=== PATIENT | female | born 1965 | race Asian ===

== ENCOUNTER 2018-05-16 21:30 | Emergency (ER) | payer OTHER ==
[~2018-05-16] VITALS: Ht 157.5 cm; Wt 45.4 kg
--- NOTE | 2018-05-16 21:47 | NUR ---
Dr. Schroeder at bedside for MSE.
[2018-05-16] MEDS ORDERED: ACETAMINOPHEN ES 500 MG TABLET PO ONE (22:00)
[2018-05-16] MEDS ORDERED: VANCOMYCIN IV 1,000 MG in IV DEXTROSE 5% 250 ML IV ONE (22:00)
[2018-05-16] MEDS ORDERED: SULFAMETH/TRIMETH 800/160 MG TABLET PO ONE (22:00)
[2018-05-16] MEDS ORDERED: diphenhydrAMINE 50 MG/1 ML VIAL IV ONE (22:00)
[2018-05-16] MEDS ORDERED: diphenhydrAMINE 50 MG/1 ML VIAL ONE ×2 (22:11→22:16)
[2018-05-16] MEDS ORDERED: ACETAMINOPHEN ES 500 MG TABLET ONE (22:11)
[2018-05-16] MEDS ORDERED: SULFAMETH/TRIMETH 800/160 MG TABLET ONE (22:12)
[2018-05-16] MEDS ORDERED: VANCOMYCIN IV 0 ML ONE (22:12)
[2018-05-16] MEDS ORDERED: VANCOMYCIN IV 200 ML ONE (22:16)
[2018-05-16 22:23] LABS: BASOPHILS # (AUTO) 0.1 K/uL (0.0-8.0); BASOPHILS % (AUTO) 0.8 % (0.0-2.0); EOSINOPHILS # (AUTO) 0.2 K/uL (0.0-0.7); HEMATOCRIT 43.8 % (31.2-41.9); HEMOGLOBIN 14.9 g/dL (10.9-14.3); LYMPHOCYTES # (AUTO) 1.4 K/uL (20.0-40.0); LYMPHOCYTES % (AUTO) 21.2 % (20.5-51.5); MEAN CORPUSCULAR HEMOGLOBIN 31.8 uug (24.7-32.8); MEAN CORPUSCULAR HGB CONC 34 g/dL (32.3-35.6); MEAN CORPUSCULAR VOLUME 93.8 fL (75.5-95.3); MONOCYTES # (AUTO) 0.5 K/uL (2.0-10.0); NEUTROPHILS # (AUTO) 4.4 K/uL (1.8-8.9); PLATELET COUNT (AUTO) 254 K/uL (179-408); RED BLOOD CELL COUNT(AUTO) 4.67 MIL/uL (3.63-4.92); WHITE BLOOD COUNT (AUTO) 6.4 K/uL (3.8-11.8)
[2018-05-16 22:33] LABS: CREATININE 0.6 mg/dL (0.6-1.3)
[2018-05-16 22:39] LABS: BILIRUBIN,DIRECT 0.1 mg/dL (0.0-0.2); BILIRUBIN,TOTAL 0.3 mg/dL (0.2-1.0); TOTAL PROTEIN, SERUM 7.7 g/dL (6.4-8.2)
--- NOTE | 2018-05-16 23:58 | NUR ---
Patient discharged to home in stable conditon. Written and verbal after care instructions given. Patient verbalizes understanding of instructions. Patient ambulated out of ER with steady gait, no acute signs of distress, VSS, all belongings taken, IV site discontinued.
[2018-05-17] VITALS: BP 108/74
== END 2018-05-17 | disposition home or self-care (01) ==
LOC: ER 21:32
DX: S80.862A Insect bite (nonvenomous), left lower leg, initial encounter (principal); L03.116 Cellulitis of left lower limb; Z90.710 Acquired absence of both cervix and uterus; W57.XXXA Bitten or stung by nonvenomous insect and other nonvenomous arthropods, initial encounter; Y93.89 Activity, other specified; Y92.89 Other specified places as the place of occurrence of the external cause; Y99.8 Other external cause status
CPT/HCPCS: 36415; 80048; 80076; 85025; 85730; 87040 ×2; 96365; 96366; 96375; 99284; J1200; J3370; A4663; A9150

== ENCOUNTER 2020-03-02 23:57 | Emergency (ER) | payer OTHER ==
[~2020-03-02] VITALS: Ht 162.6 cm; Wt 46.3 kg
--- NOTE | 2020-03-02 23:59 | NUR ---
Patient arrived via personal vehicle accompanied by male, Patient appears lethargic but arouses easily to voice, states she began feeling nauseous around 5pm today, complaints of tingling in both hands MD at bedside for MSE
[2020-03-03 00:22] LABS: BASOPHILS % (AUTO) 0.4 % (0.0-2.0); EOSINOPHILS % (AUTO) 0.5 % (0.0-7.0); HEMATOCRIT 42.8 % (31.2-41.9); HEMOGLOBIN 14.4 g/dL (10.9-14.3); LYMPHOCYTES % (AUTO) 18.2 % (20.5-51.5); MEAN CORPUSCULAR HEMOGLOBIN 31.1 uug (24.7-32.8); MEAN CORPUSCULAR HGB CONC 34 g/dL (32.3-35.6); MEAN CORPUSCULAR VOLUME 92.7 fL (75.5-95.3); MONOCYTES # (AUTO) 0.3 K/uL (2.0-10.0); MONOCYTES % (AUTO) 4.7 % (0.0-11.0); NEUTROPHILS # (AUTO) 4.3 K/uL (1.8-8.9); NEUTROPHILS % (AUTO) 76.2 % (38.5-71.5); PLATELET COUNT (AUTO) 289 K/uL (179-408); RED BLOOD CELL COUNT(AUTO) 4.62 MIL/uL (3.63-4.92); WHITE BLOOD COUNT (AUTO) 5.6 K/uL (3.8-11.8)
[2020-03-03] MEDS: IV NORMAL SALINE 1000 ML BAG IV ONE ×3 (00:27→03:06)
[2020-03-03 00:29] LABS: CREATININE 0.8 mg/dL (0.6-1.3); POTASSIUM 3.5 mmol/L (3.5-5.1)
[2020-03-03 00:35] LABS: BILIRUBIN,DIRECT 0.1 mg/dL (0.0-0.2); BILIRUBIN,TOTAL 0.6 mg/dL (0.2-1.0); TOTAL PROTEIN, SERUM 7.6 g/dL (6.4-8.2)
[2020-03-03 00:46] LABS: *BILIRUBIN,URIN NEGATIVE (NEGATIVE); *BLOOD, URINE NEGATIVE (NEGATIVE); *CLARITY,URINE CLOUDY (CLEAR); *COLOR,URINE YELLOW (YELLOW); *KETONES,URINE 3+ (NEGATIVE); *UROBILINOGEN,URINE 0.2 E.U./dl (NORMAL); LEUKOCYTE ESTERASE ,URINE NEGATIVE (NEGATIVE); NITRITE, URINE NEGATIVE (NEGATIVE); PH,URINE 8.5 (5.0-8.0); UGLUCOSE NEGATIVE (NEGATIVE)
[2020-03-03 01:02] LABS: *URINE HCG, QUAL NEGATIVE (NEGATIVE)
[2020-03-03 01:03] LABS: BACTERIA,URINE MODERATE /HPF (NONE SEEN); RBC,URINE 0-3 /HPF (0-3)
--- NOTE | 2020-03-03 01:05 | NUR ---
Patient noted resting in bed at this time, no distress noted
--- NOTE | 2020-03-03 01:37 | NUR ---
Third liter of normal saline infusing at this time, patient states, "I'm feeling better" at this time
[2020-03-03] MEDS ORDERED: CEFTRIAXONE /D5W 50ML IVPB **ER PYXIS IV ONE (02:50)
[2020-03-03] MEDS ORDERED: ONDANSETRON 4 MG/2 ML VIAL ONE (02:58)
[2020-03-03] MEDS: ONDANSETRON 4 MG/2 ML VIAL IV ONE (03:06)
[2020-03-03] MEDS: CEFTRIAXONE 1 G in IV DEXTROSE 5% 50 ML IV ONE (03:06)
--- NOTE | 2020-03-03 03:48 | NUR ---
Patient discharged to home in stable condition. Patient wheeled in wheelchair to private vehicle driven by . All belongings sent with patient, no signs of distress noted. Written and verbal after care instructions given. Patient verbalizes understanding of instructions. Stressed follow up or return to ER for worsening s/s.
[2020-03-03 03:49] VITALS: BP 112/81
== END 2020-03-03 03:51 | disposition home or self-care (01) ==
LOC: ER 03-03 00:01
DX: N39.0 Urinary tract infection, site not specified (principal); Z90.710 Acquired absence of both cervix and uterus; Z20.828 Contact with and (suspected) exposure to other viral communicable diseases
CPT/HCPCS: 36415; 71045; 80048; 80076; 81001; 83605; 83690; 84484; 84703; 85025; 85730; 87086; 87426; 93005; 96365; 96375; 99284; J0696; J2405; 70030-TC; A4663; J7030